=== PATIENT | female | born 1950 | race Caucasian/White ===

== ENCOUNTER → 2017-04-03 | Day surgery (SDC) | payer MEDICARE ==
[2017-04-03] VITALS (8 sets, daily range): BP systolic 122–144; BP diastolic 65–95
[~2017-04-03] VITALS: Ht 174.6 cm; Wt 108.9 kg
[~2017-04-03] MED LIST: BENADRYL IV PRN; CIPR500T86 PO; DECADRON ONE; DILAUDID IV PRN; DIPRIVAN IV ONE; LACTATED RINGERS 1,000 ML IV SCH; LACTATED RINGERS 1,000 ML ONE; LEVAQUIN 100 ML IV ONE; LEVO500T51 PO; METF500T4 PO; METO25TA4 PO; Magnesium Oxide PO; NORCO 7.5MG PO PRN; NS 1000ML 1,000 ML IV SCH; NS 1000ML 1,000 ML ONE; NS 3000ML IRR IR ONE; PANT40TA3 PO; PHENERGAN IV PRN; POTA10TA6 PO; SIMV20TA PO; SODIUM CHLORIDE IR ONE; SUBLIMAZE ONE; TRAM50TA PO; VERA240C2 PO; VERSED ONE; ZOFRAN IV PRN
[2017-04-03 08:04] LABS: BASOPHIL # 0.1 10^3/uL (0.0-0.1); BASOPHIL % 1.2 % (0.0-0.2); EOSINOPHIL # 0.2 10^3/uL (0.0-0.2); EOSINOPHIL % 3.6 % (0.0-5.0); HEMOGLOBIN 11.3 g/dL (12.0-15.0); LYMPHOCYTES # 1.2 10^3/uL (1.0-4.8); LYMPHOCYTES % 24.4 % (24.0-44.0); MEAN CELL HGB 24.4 pg (26-34); MEAN CELL HGB CONCENTRATION 31.2 g/dL (33-37); MEAN PLATELET VOLUME 9.6 fL (7.8-11.0); MONOCYTES # 0.6 10^3/uL (0.3-0.8); MONOCYTES % 11.2 % (5.0-12.0); NEUTROPHILS % 59.4 % (41.0-85.0); RED CELL DISTRIBUTION WIDTH 17.1 % (11.5-14.5)
[2017-04-03 08:12] LABS: CALCIUM 8.8 mg/dL (8.4-10.5); CARBON DIOXIDE 24.2 mmol/L (20.0-32)
--- NOTE | 2017-04-03 08:27 | PCM.EKG ---
[facility] Test Date: 2017-04-03 Test Time: 08:26:29 Pat Name: LEONOR OSBORNE Department: Room: Gender: F Cooperative Manager: : [id number] Requested By: ELAN VINSON Order Number: [id number] Reading MD: Measurements Intervals [place] Rate: 67 P: 59 MN: 162 QRS: -51 QRSD: 94 T: 19 QT: 448 QTc: 473 Interpretive Statements Normal sinus rhythm Left anterior fascicular block Anterolateral infarct, age undetermined Abnormal ECG Compared to ECG 03/17/2017 07:09:05 Left anterior fascicular block now present Atrial fibrillation no longer present Ventricular premature complex(es) no longer present Left-axis deviation no longer present Myocardial infarct finding still present Please click the below link to view image of tracing.
--- NOTE | 2017-04-03 11:28 | OPH ---
DATE OF SURGERY: 04/03/2017 PREOPERATIVE DIAGNOSIS: Calculus, right distal ureter with an indwelling stent. FINAL DIAGNOSIS: Calculus, right distal ureter with an indwelling stent. PROCEDURES: Cystoscopy, removal of right ureteral stent, right ureteroscopy with stone extraction. DESCRIPTION OF PROCEDURE: The patient was brought to the cystoscopy room and was put in supine position on the cystoscopy table. After the patient was given a satisfactory and adequate LMA general anesthesia, the patient was placed in lithotomy position. The genitalia was then prepped and draped aseptically in the usual manner. First, a 22-Peruvian cystoscope was inserted per urethra up to the bladder. With the use of the right angle lens, the bladder was visualized. There was some congestion noted in the bladder wall. No tumor, no calculi, no ulcerations seen. The stent in the right ureteral orifice was easily noted and this was removed and exchanged with a Glidewire. After that a cystoscope was removed and a semirigid 7-Peruvian ureteroscope was inserted per urethra up to the right orifice all the way to the upper ureter to the renal pelvis and there was no obstruction noted in the upper ureter, but there was a small stone noted in the right distal ureter, which was then extracted. Specimen was polymerized. After removal of the stone, the rest of the ureter was again inspected, and no more stones noted and no obstruction noted. The Glidewire was removed. The ureteroscope was removed and then a cystoscope was reinserted to the bladder and the bladder was emptied with fluid. After this was done, instrument was removed. The patient was awakened, was transferred to the recovery room in stable condition. Mynor Ellison MD DR: [email or web address] JOB# [id number]
--- NOTE | 2017-04-03 12:36 | DIREP ---
PROCEDURE:XRAY FLUOROSCOPY COMPARISON:None. INDICATIONS:cysto, retrograde with stent removal FINDINGS: Intraoperative fluoroscopy was provided for the ordering clinician by the Radiology Department for ureteral stent removal.. Two images submitted for interpretation demonstrate selective wire access of the right ureter and ureteral stent removal. 28.5 seconds fluoroscopy time utilized. CONCLUSION: Intraoperative fluoroscopy provided for the ordering clinician by the Radiology Department as detailed above. Dictated by: Iggy Mann DO on 04/03/2017 at 12:34 PM
== END | disposition home or self-care (01) | DRG 693 ==
LOC: SURG 05:06
PROVIDERS: ATTEND Urology
DX: N20.1 Calculus of ureter (principal); Z90.710 Acquired absence of both cervix and uterus; J96.21 Acute and chronic respiratory failure with hypoxia; D64.9 Anemia, unspecified; E66.9 Obesity, unspecified; J81.1 Chronic pulmonary edema; I48.0 Paroxysmal atrial fibrillation; E11.9 Type 2 diabetes mellitus without complications; A41.9 Sepsis, unspecified organism; R65.21 Severe sepsis with septic shock; Z68.35 Body mass index [BMI] 35.0-35.9, adult; M19.90 Unspecified osteoarthritis, unspecified site; Z68.37 Body mass index [BMI] 37.0-37.9, adult
CPT/HCPCS: 36415; 52352; 76000; 80048; 82948; 85025; 85610; 93005; J1100; J1956; J2250; J3010; J3490; J7030 ×3; J7120; C1769; C1894